=== PATIENT | male | born 1935 | race Caucasian/White ===

== ENCOUNTER → 2018-02-24 | Outpatient (CLI) | payer MEDICARE ==
--- NOTE | 2018-02-24 11:25 | BD ---
EXAMINATION TYPE: Axial Bone Density DATE OF EXAM: 02/24/2018 COMPARISON: NONE CLINICAL HISTORY: chronic steroid use. Osteoporosis screening Height: 5'7 1/2 Weight: 163 FRAX RISK QUESTIONS: Glucocorticoids (More than 3mos): y (Ex: prednisone, prednisolone, methylprednisolone, dexamethasone, and hydrocortisone). Secondary Osteoporosis: RISK FACTORS HISTORY OF: History of Wrist Fracture: ? Right When: child Diet low in dairy products/other sources of calcium: y MEDICATIONS: Prednisone or other steroids: y How Lon year Additional Medications: cholesterol, prostate cancer, blood pressure Additional History: prostate cancer, 2004 radiation EXAM MEASUREMENTS: Bone mineral densitometry was performed using the [employer] System. Bone mineral density as measured about the Lumbar spine is: ----- L1-L4(G/cm2): 1.342 T Score Values are as follows: ----- L2: 0.4 ----- L3: 1.6 ----- L4: 3.1 ----- L1-L4:1.4 Bone mineral density about the R hip (g/cm2): 0.873 Bone mineral density about the L hip (g/cm2): 0.864 T Score values are as follows: -----R Neck: -1.2 -----L Neck: -1.3 -----R Total: -0.5 -----L Total: -0.4 IMPRESSION: Osteopenia (T Score between -2.5 and -1). There is slightly increased risk of fracture and the patient may be considered for treatment. Re-Screen 2-5 years. NOTE: T-SCORE=SD OF THE YOUNG ADULT MEAN.
== END | disposition home or self-care (01) ==
LOC: RADBDWWP 09:55
PROVIDERS: ATTEND Family Medicine
DX: M85.80 Other specified disorders of bone density and structure, unspecified site (principal); Z79.52 Long term (current) use of systemic steroids
CPT/HCPCS: 77080

== ENCOUNTER → 2018-12-27 | Day surgery (SDC) | payer MEDICARE ==
[2018-12-19 13:59] VITALS: BMI 24.7
[~2018-12-27] MED LIST: ACETAMINOPHEN TAB 325 MG TAB PO PRN; HYDROcodone/APAP 5-325MG 1 EACH TAB PO PRN; LIDOCAINE 1% INJ 10MG/ML (20 ML MDV) ONE; LIDOCAINE 1% INJ 10MG/ML (20 ML MDV) SQ ONE; MIDAZOLAM 2 MG/2 ML VIAL IV ONE; SODIUM CHLORIDE 0.9% 1,000 ML IV SCH; ceFAZolin 1,000 MG in SODIUM CHLORIDE 0.9% IRRIGATIO 250 ML IRRIGATION ONE; ceFAZolin IN SWFI 2 GM/20 ML SYRINGE IVP ONE; fentaNYL (PF) 50 MCG/ML 2 ML AMP IV ONE; fentaNYL (PF) 50 MCG/ML 2 ML AMP ONE
[2018-12-27 08:29] VITALS: TEMP 97.7
--- NOTE | 2018-12-27 10:10 | P.PCN ---
Date of Procedure: 12/27/18 Preoperative Diagnosis: History of permanent pacemaker implantation, battery depletion Postoperative Diagnosis: The same. Procedure(s) Performed: Battery replacement, fluoroscopy review of leads and also the pulse generator. Description of Procedure: HISTORY: This is a 83-year-old gentleman with history of complete heart block, status post permanent pacemaker implantation who has reached [facility]. Patient is brought for elective replacement of the battery CONSENT: I have discussed the risks and benefits as related to the above mentioned procedure and both sedation/analgesia as well as necessary blood product administration. The patient has indicated understanding and acceptance of the risks of the procedure discussed. PROCEDURE: Patient was brought to the lab in a fasting state. Patient was given IV Versed and fentanyl for sedation. The skin over the existing pulse generator was infiltrated with lidocaine. An incision was made in the skin and was deepened until the pectoral fascia was exposed. Hemostasis was obtained. The existing pulse generator was pulled out of the pocket. The leads were disconnected and were checked for thresholds. Conscious Sedation: Versed 0.5mg Fentanyl 25 g Duration 21minutes THRESHOLDS: ATRIAL: The minimum patient threshold in the atrium is 0.5 at pulse width of 0.5. The impedance is 331. P-wave: 1.9 VENTRICULAR: The minimal patient threshold is 0.7 at pulse width of 0.4. R-wave: Not measured THE LEADS: ATRIAL: This is manufactured by [employer]. Model number is [id number]. The serial number is [id number] VENTRICULAR: This is manufactured by [employer]. Model number is 5092-58. The serial number is [id number] THE EXPLANTED DEVICE: The explanted device is manufactured by [employer]. Model number is ADDR [id number] and the serial number is [id number] THE NEW DEVICE: This is manufactured by [employer]. Model number is [id number] and the serial number is [id number]. The leads were then connected to a new pulse generator. Pacemaker seems to function normally. The pocket was irrigated with antibiotics. The pocket was closed in the usual fashion. Pectoral fascia was closed with 2-0 Prolene, the subcutaneous tissue was closed with 3-0 Prolene and the skin was closed with 4-0 Prolene. Patient tolerated the procedure well . Patient will be monitored on the telemetry unit for 2-3 hours. If stable patient be discharged home later today. PLAN: Patient is programmed to DDDR mode with rates 50 to 130. The output in both chamber is 3.5V. Patient tolerated the procedure well. Patient will be discharged home later today. Patient will continue home medication and prophylactic antibiotics FALLOW UP: With Dr. Alejo as an outpatient.
[2018-12-27 10:33] VITALS: RESP 14
[2018-12-27 16:17] VITALS: BP 135/72; PULSE 50
== END | disposition home or self-care (01) ==
LOC: CATHEP 07:55
PROVIDERS: ATTEND Internal Medicine Cardiovascular Disease
DX: Z45.010 Encounter for checking and testing of cardiac pacemaker pulse generator [battery] (principal); I25.10 Atherosclerotic heart disease of native coronary artery without angina pectoris; Z79.82 Long term (current) use of aspirin; Z79.899 Other long term (current) drug therapy; I10 Essential (primary) hypertension; Z82.49 Family history of ischemic heart disease and other diseases of the circulatory system; E78.2 Mixed hyperlipidemia; Z95.1 Presence of aortocoronary bypass graft
CPT/HCPCS: 33228; C1785; J2250; J0690 ×2; J2001; J3010

== ENCOUNTER → 2019-02-13 | Outpatient (CLI) | payer MEDICARE ==
[2019-02-13 17:35] LABS: ALT 23 U/L (10-49); AST 30 U/L (14-35); Albumin/Globulin Ratio 2.33 (1.60-3.17); Alkaline Phosphatase 66 U/L (41-126); Calcium 8.7 mg/dL (8.7-10.3); Carbon Dioxide 24.5 mmol/L (21.6-31.8); Chloride 106 mmol/L (96-109); Cholesterol 122 mg/dL (0-200); Globulin 1.8 g/dL (1.6-3.3); Glucose 96 mg/dL (70-110); Potassium 4.6 mmol/L (3.5-5.5); Sodium 140 mmol/L (135-145); Triglycerides <50.0 mg/dL (0.0-149.0); VLDL Calculation 9.98 mg/dL (5.00-40.00)
== END | disposition home or self-care (01) ==
LOC: LABWHC1 09:09
PROVIDERS: ATTEND Nurse Practitioner Adult Health
DX: E78.2 Mixed hyperlipidemia (principal); I10 Essential (primary) hypertension
CPT/HCPCS: 36415; 80053; 80061

== ENCOUNTER → 2019-08-02 | Outpatient (CLI) | payer MEDICARE ==
[2019-08-02 17:35] LABS: ALT 21 U/L (10-49); AST 27 U/L (14-35); Chol/HDL Ratio 1.82; Cholesterol 131 mg/dL (0-200); Triglycerides <50.0 mg/dL (0.0-149.0)
== END | disposition home or self-care (01) ==
LOC: LABWHC1 10:31
PROVIDERS: ATTEND Internal Medicine Interventional Cardiology
DX: C61 Malignant neoplasm of prostate (principal); E78.2 Mixed hyperlipidemia
CPT/HCPCS: 36415; 80061; 84153; 84450; 84460